=== PATIENT | male | born 1930 | race Caucasian/White ===

== ENCOUNTER 2018-02-23 09:06 | Day surgery (SDC) | payer OTHER ==
[~2018-02-23 09:06] MED LIST: CEFAZOLIN 2 GM/50 ML (PMX) 50 ML IVPB; LACTATED RINGER'S 1,000 ML IV*
[2018-02-23] MEDS ORDERED: POLYMYXIN/BACITRACIN 1L IRRIG (10:45)
[2018-02-23] MEDS ORDERED: CEFAZOLIN 2 GM/50 ML (PMX) 50 ML IVPB (10:53)
[2018-02-23] MEDS ORDERED: MIDAZOLAM 1 MG/ML 2 ML INJ (11:10)
[2018-02-23] MEDS ORDERED: FENTAnyl 50 MCG/ML VIAL (11:10)
[2018-02-23] MEDS ORDERED: PROPOFOL 100 ML (11:11)
[2018-02-23] MEDS ORDERED: ETOMIDATE 20 MG INJ ×2 (11:11)
[2018-02-23] MEDS ORDERED: LIDOCAINE 1%/EPI 30 ML INJ (11:14)
[2018-02-23] MEDS ORDERED: ONDANSETRON 4 MG INJ IV (12:30)
[2018-02-23] MEDS ORDERED: ACETAMINOPHEN 325 MG TAB PO (12:30)
[2018-02-23] MEDS ORDERED: IPRATROPIUM (NEB) 0.5 MG/2.5 ML AMP HHN (12:30)
[2018-02-23] MEDS ORDERED: FENTAnyl 50 MCG/ML VIAL IV (12:30)
[2018-02-23] MEDS ORDERED: HYDROmorphONE 1 MG/5 ML IV SYRINGE IV (12:30)
[2018-02-23] MEDS ORDERED: DIPHENHYDRAMINE 50 MG INJ IV (12:30)
[2018-02-23] MEDS ORDERED: CEPHALEXIN 500 MG CAP PO (14:00)
== END 2018-02-23 16:05 | disposition home or self-care (01) ==
LOC: SDS 09:06
DX: Z45.02 Encounter for adjustment and management of automatic implantable cardiac defibrillator (principal); E11.9 Type 2 diabetes mellitus without complications; I48.91 Unspecified atrial fibrillation; I10 Essential (primary) hypertension; I25.10 Atherosclerotic heart disease of native coronary artery without angina pectoris; I50.9 Heart failure, unspecified; I25.2 Old myocardial infarction
CPT/HCPCS: 33264; 82962